=== PATIENT | female | born 1965 | race Caucasian/White ===

== ENCOUNTER → 2016-08-07 | Outpatient (CLI) | payer BC | LOC: MC.RAD 08-06 11:00 | DX: Z12.31 Encounter for screening mammogram for malignant neoplasm of breast (principal); N63 Unspecified lump in breast; N60.02 Solitary cyst of left breast ==

== ENCOUNTER → 2016-08-21 | Outpatient (CLI) | payer BC | LOC: COL.RAD 10:11 | DX: M41.85 Other forms of scoliosis, thoracolumbar region (principal) ==

== ENCOUNTER → 2017-12-31 | Outpatient (CLI) | payer BC | LOC: MC.RAD 08:45 | DX: Z12.31 Encounter for screening mammogram for malignant neoplasm of breast (principal) ==

== ENCOUNTER → 2019-10-06 | Outpatient (CLI) | payer BC | LOC: MC.RAD 09-15 13:00 | DX: Z12.31 Encounter for screening mammogram for malignant neoplasm of breast (principal) ==

== ENCOUNTER → 2020-10-11 | Outpatient (CLI) | payer BC | LOC: MC.RAD 08:22 | DX: Z12.31 Encounter for screening mammogram for malignant neoplasm of breast (principal) ==

== ENCOUNTER → 2023-01-25 | Outpatient (CLI) | payer BC | LOC: MC.RAD 11:13 | DX: Z12.31 Encounter for screening mammogram for malignant neoplasm of breast (principal) ==